=== PATIENT | male | born 1965 | race Caucasian/White ===

== ENCOUNTER 2018-11-12 10:52 | Day surgery (SDC) | payer MEDICARE, OTHER ==
[~2018-11-12 10:52] MED LIST: ACETAMINOPHEN 1,000 MG/100 ML BTL IVPB ONE; CEFAZOLIN 2 Gram 2 GM/50 ML BAG IVPB ONE
[2018-11-12] MEDS ORDERED: DEXAMETHASONE 4 MG/ML 1ML VIAL IVP ONE (10:53)
[2018-11-12] MEDS ORDERED: LIDOCAINE 2% MDV (20MG/ML) 20ML VIAL IV ONE (10:53)
[2018-11-12] MEDS ORDERED: PROPOFOL 10 MG/ML VIAL IV ONE (10:53)
[2018-11-12] MEDS ORDERED: SUGAMMADEX SODIUM 200 MG/2 ML VIAL IV ONE (10:53)
[2018-11-12] MEDS ORDERED: ONDANSETRON HCL IV 4 MG/2 ML VIAL IVP ONE ×2 (10:53→17:15)
[2018-11-12] MEDS ORDERED: KETOROLAC 30 MG/ML VIAL IVP ONE (10:53)
[2018-11-12] MEDS ORDERED: ROCURONIUM BROMIDE 50MG/5ML VIAL IV ONE (10:53)
[2018-11-12] MEDS ORDERED: MIDAZOLAM HCL 2MG/2ML VIAL IV ONE (10:53)
[2018-11-12] MEDS ORDERED: FENTANYL PF 100MCG/2ML VIAL IV ONE (10:53)
[2018-11-12] MEDS ORDERED: RINGERS SOLUTION,LACTATED 1,000 ML IV ONE (12:15)
[2018-11-12] MEDS ORDERED: EPINEPHRINE 1 MG/ML AMPUL SQ ONE ×2 (15:24)
[2018-11-12] MEDS ORDERED: BUPIVACAINE LIPOSOME 266MG/20ML VIAL SQ ONE (15:24)
[2018-11-12] MEDS ORDERED: BUPIVACAINE 0.5% W/EPI MPF 30 ML VIAL SQ ONE (15:24)
--- NOTE | 2018-11-27 09:31 | Operative Note ---
DATE OF SERVICE: 11/12/2018. DATE OF SURGERY: 11/12/2018. PREOPERATIVE DIAGNOSES: 1. Left shoulder rotator cuff tear, possible labrum tear. 2. Acromioclavicular joint arthrosis. POSTOPERATIVE DIAGNOSES: 1. Rotator cuff tear. 2. Subscapularis tear. 3. Acromioclavicular joint arthrosis. OPERATION: 1. Diagnostic arthroscopy. 2. Arthroscopic acromioplasty and subacromial decompression. 3. Arthroscopic excision of distal clavicle and the acromioclavicular joint 1 cm. 4. Arthroscopic rotator cuff repair, subscapularis tendon. SURGEON: Duke Garcia MD. ANESTHESIA: General endotracheal. COMPLICATIONS: None. BLOOD LOSS: Minimal. OPERATIVE FINDINGS: A high-grade upper subscapularis tear, AC joint arthrosis. COMPONENTS PLACED: [employer] 4.75 mm Regenesorb anchor with 2 #2 Ultrabraid sutures. INDICATION: This is a 53-year-old male who is well known to myself. He presented to the office last June with left shoulder pain on and off for about 2 years. He eventually had an ultrasound at that time, which was negative for a full thickness tear, and we did injection therapy, and he continued to have more pain in the shoulder. The injection helped for a few months, but the pain kept returning, and eventually I offered him arthroscopic surgery, acromioplasty, excision of distal clavicle, and I explained that there may be a chance for partial tear of the rotator cuff, and this was the usual history we see with on and off recurrent pain over the years, even though we did not see a full thickness tear. We elected to procede but the insurance company wanted an MRI, and the MRI showed a possible partial thickness tear of the subscapularis tendon, and he wished to proceed with surgery. However, for some reason, rotator cuff repair procedure was not approved by surgery, only labrum. I am not quite sure why. It absolutely makes no sense with the patient's history, exam findings, symptoms, and MRI and ultrasound findings. Either way, he was scheduled for surgery. I explained that if we do see something wrong, such as a tear, it will be fixed. He is aware of all that, where he may have to pay out of pocket for that. He may have to further appeal the issue with his insurance company, [employer]. All the other risks and benefits thoroughly in detail were explained, including, but not limited to, infection, nerve injury, vessel injury, persistent pain, numbness and tingling in the shoulder, re-tears of the rotator cuff, need for further procedures, and postop stiffness, and all his questions were answered, his course was outlined, and he agreed to proceed. PROCEDURE: Patient was brought in the OR and placed in the beach chair position, prepped for surgery. General endotracheal anesthesia induced, and his left upper extremity and shoulder were prepped and draped in sterile fashion. The left shoulder was prepped again using ChloraPrep and draped, and a time out was performed. Preop exam revealed full shoulder range of motion, no shoulder instability. Next, glenohumeral joint and subacromial space and AC joint injected with 0.5% Marcaine with epi. Standard posterior arthroscopic portal was established 2 cm inferior, 1 cm into posterolateral corner of the acromion. The anterior portal was established under direct visualization. Diagnostic arthroscopy performed. The biceps tendon was absolutely normal. It was retracted within the joint and then upper portion of it was normal. There was no evidence of partial fraying or tearing. The entire labrum was normal, as well. The superior labrum, the biceps anchor was absolutely normal. There was no slight fraying, no detachment, no tears whatsoever in the labrum around the entire circumference of the glenoid. The posterior labrum normal. Axial recess normal. Posterior inferior labrum normal. Glenoid, humeral head, articular cartilage were completely normal. There was no chondromalacia, no arthrosis here. The superior and middle glenohumeral ligaments were intact. The subscap tendon, which was the only pathology we found in the shoulder, other than the AC joint, had a significant high-grade partial thickness tear involving 80-90% of the width of the tendon insertion. We immediately debrided the lesser tuberosity at the tear site in preparation for repair of this tear. The anterior inferior limb of the glenohumeral ligaments once again were normal. Next, anterior and posterior subacromial portals established, inserted the tissue blade to portal and blade back the subacromial bursa and released the anterior lateral acromioclavicular ligament completely, opened up the inferior AC joint capsule. Next, a lateral portal was established on the posterior margin of the AC joint and a 5.5 mm bur. Inserted the bur there and took off strips of bone including laterally, medially, anteriorly, and posteriorly for the type 2 acromion to a flat planar surface. We used a rasp and smoothed the subacromial surface, verified it was flat with a probe from the posterior portal. Next, inserted a bur into the anterior portal, burred down the medial acromial facet. Resected this down to 1 cm. A small stab incision superior to the AC joint, inserted the shaver there to smooth both bony surfaces. Verified the AC joint completely free of any bony impingement or bony fragments. Next, we thoroughly resected the bur around the periphery of the rotator cuff and the bursal surface and examined that, and it was completely normal. Again, there was no evidence of any partial or full thickness tears whatsoever in the posterior portion of the cuff. Therefore, the only pathology we found again was AC joint arthrosis and the high-grade partial thickness tear of the subscap tendon. Next, we established accessory anterior, inferior, and medial portals for a working portal for the subscap tendon, inserted this as well as we can in the anterior portal, inserted the punch tap at the lesser tuberosity, and tapped the hole. Next, we inserted the anchor into hole and buried them in the surface of the bone. Next, we passed 1 limb of each set of sutures into the joint line, penetrating through full thickness healthy subscap tissue, penetrating through medially, sweeping laterally, and placing them and penetrated through the joint line, and grasped each corresponding limb of suture from inferior to posterior, covering the entire tear site with 2 vertical mattress-type sutures. Then tied those down over the top using a taut line hitch, sliding locking knot, backed up by three reverse hitch alternating post throws. The sutures were cut off, the knots were stably secured, and directly visualized the entire activity and then the footprint of the subscap tendon and the full thickness healthy tendon tissue was reestablished nicely back onto the lesser tuberosity. This completed our procedures. The scope and curtain was removed. The scope incisions were covered with Xeroform gauze and sterile dressing, placed in an UltraSling. Patient tolerated the procedure well. No intraoperative complications. All sponge and needle counts correct. Sent to recovery stable. Neurovascularly intact. Had discharge as an outpatient. Follow up in 1 day and 2 weeks. CC: Primary care doctor in [facility]
== END 2018-11-12 17:28 | disposition home or self-care (01) ==
LOC: SUR 10:52
PROVIDERS: ATTEND Orthopaedic Surgery
DX: M75.102 Unspecified rotator cuff tear or rupture of left shoulder, not specified as traumatic (principal); S46.812A Strain of other muscles, fascia and tendons at shoulder and upper arm level, left arm, initial encounter; M19.012 Primary osteoarthritis, left shoulder; E11.9 Type 2 diabetes mellitus without complications; I10 Essential (primary) hypertension; J44.9 Chronic obstructive pulmonary disease, unspecified; I50.9 Heart failure, unspecified; I25.2 Old myocardial infarction; I25.5 Ischemic cardiomyopathy; K74.60 Unspecified cirrhosis of liver; F17.210 Nicotine dependence, cigarettes, uncomplicated; Z86.73 Personal history of transient ischemic attack (TIA), and cerebral infarction without residual deficits
CPT/HCPCS: 36416; 82948; C1713; J0171; J1885; J2405; J3490; J7120